=== PATIENT | female | born 1955 | race Caucasian/White ===

== ENCOUNTER → 2016-10-22 09:25 | Outpatient (CLI) | payer MEDICAID ==
[2015-01-01 19:52] VITALS: BMI 31.1
[~2016-10-22 09:25] MED LIST: ACTOS30 MG PO; BACLOFEN10 MG; DIFLUCAN200 MG PO; ELIQUIS2.5 MG PO; GLUCOPHAGE1000 MG PO; HYDROCODONE-APA1 TAB PO; LOPRESSOR25 MG PO; MOBIC7.5 MG PO; NAPROSYN500 MG PO; NEURONTIN 300300 MG PO; NORVASC5 MG PO; PERCOCET 10/3251 TA1 PO; PRILOSEC20 MG PO; PROZAC10 MG PO; ZESTORETIC 20/21 TAB PO
== END | disposition home or self-care (01) ==
LOC: D.NM 09:25
DX: M25.561 Pain in right knee (principal)

== ENCOUNTER → 2016-11-05 19:14 | Outpatient (CLI) | payer MEDICAID ==
[2015-01-01 19:52] VITALS: BMI 31.1
== END | disposition home or self-care (01) ==
LOC: D.LABREF 19:14
DX: M25.561 Pain in right knee (principal); Z11.8 Encounter for screening for other infectious and parasitic diseases

== ENCOUNTER 2016-11-27 09:30 | Inpatient (IN) | payer MEDICAID ==
[~2016-11-27] VITALS: Ht 170.2 cm; Wt 90.5 kg
[2016-11-27 09:20] LABS: BASOPHILS 0.4 % (0-2); EOSINOPHILS 1.9 % (0-7); HEMATOCRIT 38.4 % (36.0-48.0); HEMOGLOBIN 12.4 g/dL (12-16); IMMATURE GRANULOCYTES 0.2 % (0-5); LYMPHOCYTES 29.4 % (15-50); MCH 30.6 pg (26.0-34.0); MCHC 32.3 g/dL (31.0-37.0); MCV 94.8 fL (80.0-100.0); MEAN PLATELET VOLUME 11.9 fL (7.4-10.4); MONOCYTES 7.9 % (2-11); NEUTROPHILS 60.2 % (40-80); PLATELET COUNT 252 10x3/uL (130-400); RBC 4.05 10x6/uL (4.00-5.40); RDW 13.9 % (11.5-14.5); WBC 4.8 10x3/uL (4.8-10.8)
[2016-11-27 09:27] LABS: APTT 25.5 SECONDS (22.8-39.4); INR 0.93 (0.85-1.17); PROTIME 12.3 SECONDS (11.6-15.0)
[~2016-11-27 09:30] MED LIST changes: -ACTOS30 MG PO; +ACTOS45 MG PO; +AMBIEN5 MG PO; -BACLOFEN10 MG; +BACLOFEN10 MG PO; +CELEBREX200 MG PO; +CIMETIDINE200 MG PO; +FENOFIBRATE134 MG PO; +NORVASC10 MG PO; -NORVASC5 MG PO; +OMEPRAZOLE20 M1 PO
[2016-11-27 09:37] LABS: ANION GAP 11.1 mmol/L (8-16); CALCIUM 9.2 mg/dL (8.5-10.1); CARBON DIOXIDE 29.8 mmol/L (21.0-32.0); CREATININE - SERUM 1.4 mg/dL (0.6-1.3); POTASSIUM - SERUM 3.9 mmol/L (3.5-5.1)
[2016-11-27 09:45] LABS: APPEARANCE CLEAR (CLEAR); BACTERIA MODERATE /hpf (NONE SEEN); BILIRUBIN NEGATIVE (NEGATIVE); COLOR YELLOW (YELLOW); GLUCOSE NEGATIVE (NEGATIVE); KETONE NEGATIVE (NEGATIVE); LEUKOCYTE ESTERASE 1+ (NEGATIVE); MUCUS <1+ /lpf (NONE SEEN); NITRITE NEGATIVE (NEGATIVE); PROTEIN NEGATIVE (NEGATIVE); RED CELLS - URINE OCC /hpf (0-5); UROBILINOGEN NORMAL (NORMAL)
--- NOTE | 2016-11-27 11:57 | NUR ---
1100-DR DEMARCO INFORMED OF UA RESULTS. STATES NOTIFY MARIA DOLORES DUGGAN APN TO TREAT PATIENT. 1130-MARIA DOLORES DUGGAN APN IS WITH PATIENT. MESSAGE LEFT WITH ZACH.
--- NOTE | 2016-11-27 12:47 | NUR ---
EMRE NOTE: MESSAGE LEFT AT DR. DEMARCO'S OFFICE REGARDING ABNORMAL LAB.
[2016-12-01] VITALS (12 sets, daily range): BP systolic 100–165; BP diastolic 48–80; Ht 170.2 cm; Wt 90.5 kg
--- NOTE | 2016-12-01 09:38 | NUR ---
PT BEGAN HURTING REPORT WAS BEING CALLED TO FLOOR. MEDICATED FOR PAIN, NOW RESTING COMFORTABLY. FAMILY NOTIFIED OF ROOM NUMBER. TRANSFER TO ROOM.
--- NOTE | 2016-12-01 09:45 | NUR ---
PATIENT RECEIVED TO FLOOR FROM PACU VIA BED. RESPIRATIONS EVEN AND UNLABORED. VITAL SIGNS STABLE. FAMILY AT BEDSIDE. ORIENTED TO ROOM. DRESSING TO RIGHT KNEE CLEAN, DRY AND INTACT. ICE PACK IN PLACE. SIDE RAILS UP X3. BED IN LOW POSITION. CALL LIGHT IN REACH. BED ALARM ON.
--- NOTE | 2016-12-01 10:50 | NUR ---
ALERT IN BED WATCHING TV. NO SIGNS OF DISTRESS NOTED. VITAL SIGNS STABLE. SCDS ON BILATERALLY. DENIES NEEDS. SIDE RAILS UP X2. BED IN LOW POSITION. CALL LIGHT IN REACH.
--- NOTE | 2016-12-01 12:30 | NUR ---
PATIENT ALERT IN BED EATING LUNCH. TOLERATING WELL. DENIES NEEDS. SIDE RAILS UP X2. BED IN LOW POSITION. CALL LIGHT IN REACH.
--- NOTE | 2016-12-01 14:20 | NUR ---
PATIENT IN MID RIVERO POSITION RESTING WITH EYES CLOSED. RESPIRATIONS EVEN AND UNLABORED. WAKES EASY. SCHEDULED MEDICATION ADMINISTERED. SIDE RAILS UP X2. BED IN LOW POSITION. CALL LIGHT IN REACH.
--- NOTE | 2016-12-01 21:20 | NUR ---
PATIENT RESTING IN BED ON CPM MACHINE AND REQUESTED A PAIN PILL WHEN IT IS DUE. BED IN LOWEST POSITION AND CALL LIGHT WITHIN REACH. ENCOURAGED THE PATIENT TO CALL IF SHE HAS NEEDS.
[2016-12-02] VITALS: BP 146/56
[2016-12-02 04:00] VITALS: BP 130/57
[2016-12-02 05:38] LABS: HEMATOCRIT 34.3 % (36.0-48.0); HEMOGLOBIN 10.9 g/dL (12-16); MCH 30.4 pg (26.0-34.0); MCHC 31.8 g/dL (31.0-37.0); MCV 95.8 fL (80.0-100.0); MEAN PLATELET VOLUME 12.2 fL (7.4-10.4); RBC 3.58 10x6/uL (4.00-5.40); RDW 14.3 % (11.5-14.5); WBC 6.6 10x3/uL (4.8-10.8)
--- NOTE | 2016-12-02 07:25 | NUR ---
PATIENT RECEIVED IN LOW RIVERO POSITION ALERT AND RESTING QUIETLY. RESPIRATIONS EVEN AND UNLABORED. CPM TO RIGHT LEG. TOLERATING WELL. DENIES NEEDS. FAMILY PRESENT. SIDE RAILS UP X3. BED IN LOW POSITION. CALL LIGHT IN REACH.
--- NOTE | 2016-12-02 08:44 | NUR ---
PATIENT ALERT IN BED EATING BREAKFAST. TOLERATING WELL. SCHEDULED MEDICATION ADMINISTERED WELL PRN NORCO. SIDE RAILS UP X2. BED IN LOW POSITION. CALL LIGHT IN REACH.
[2016-12-02 09:30] VITALS: BP 140/59
--- NOTE | 2016-12-02 11:30 | NUR ---
PATIENT SITTING UP IN CHAIR AT BEDSIDE. NO SIGNS OF DISTRESS NOTED. CALL LIGHT IN REACH.
--- NOTE | 2016-12-02 12:40 | NUR ---
SITTING UP IN CHAIR ALERT. C/O PAIN 10/08. NORCO PER PRN ORDER. DENIES NEEDS. CALL LIGHT IN REACH.
[2016-12-02 13:54] VITALS: BP 119/56
--- NOTE | 2016-12-02 14:35 | NUR ---
ALERT IN BED VISITING WITH FAMILY. RESPIRATIONS EVEN AND UNLABORED. RATES PAIN 4/10. SIDE RAILS UP X2. BED IN LOW POSITION. CALL LIGHT IN REACH.
[2016-12-02 16:23] VITALS: BP 104/64
--- NOTE | 2016-12-02 16:44 | NUR ---
IV TO RIGHT FOREARM LEAKING. IV D/C WITH CATH TIP INTACT. SITE COVERED WITH GAUZE AND TAPE. NEW 22 GAUGE IV SITED TO LEFT FOREARM X1 ATTEMPT. FLUSHES EASY WITH BLOOD RETURN PRESENT. SECURED WITH TAPE AND TEGADERM. SIDE RAILS UP X2. BED IN LOW POSITION. CALL LIGHT IN REACH.
--- NOTE | 2016-12-02 19:57 | NUR ---
PATIENT RESTING IN BED AND DENIES NEEDS AT THIS TIME. BED IN LOWEST POSITION AND CALL LIGHT WITHIN REACH. ENCOURAGED THE PATIENT TO CALL IF SHE HAS NEEDS.
[2016-12-02 20:00] VITALS: BP 123/60
[2016-12-03] VITALS: BP 129/54
[2016-12-03 04:00] VITALS: BP 109/51
--- NOTE | 2016-12-03 05:22 | NUR ---
ADMINISTERED ZOFRAN FOR N/V. PATIENT REQUESTED THAT WE WAIT TO PUT HER ON THE CPM MACHINE.
[2016-12-03 06:34] LABS: HEMATOCRIT 34.3 % (36.0-48.0); HEMOGLOBIN 10.9 g/dL (12-16); MCH 30.5 pg (26.0-34.0); MCHC 31.8 g/dL (31.0-37.0); MCV 96.1 fL (80.0-100.0); MEAN PLATELET VOLUME 12.2 fL (7.4-10.4); RBC 3.57 10x6/uL (4.00-5.40); RDW 14.4 % (11.5-14.5); WBC 6.6 10x3/uL (4.8-10.8)
--- NOTE | 2016-12-03 07:10 | NUR ---
PATIENT RECEIVED IN LOW RIVERO POSITION RESTING WITH EYES CLOSED. RESPIRATIONS EVEN AND UNLABORED. CPM TO RIGHT LEG. SIDE RAILS UP X2. BED IN LOW POSITION. CALL LIGHT IN REACH.
[2016-12-03 08:06] VITALS: BP 150/66
--- NOTE | 2016-12-03 08:40 | NUR ---
PATIENT ALERT IN BED. NO SIGNS OF DISTRESS NOTED. SCHEDULED MEDICATION ADMINISTERED. DENIES NEEDS. SIDE RAILS UP X2. BED IN LOW POSITION. CALL LIGHT IN REACH.
--- NOTE | 2016-12-03 09:20 | NUR ---
C/O PAIN 10/08. 1 TAB NORCO PER PRN ORDER. NO FURTHER NEEDS VOICED. SIDE RAILS UP X2. BED IN LOW POSITION. CALL LIGHT IN REACH.
--- NOTE | 2016-12-03 11:15 | NUR ---
SITTING UP IN CHAIR AT BEDSIDE. NO SIGNS OF DISTRESS NOTED. DENIES NEEDS. CALL LIGHT IN REACH.
[2016-12-03 12:27] VITALS: BP 101/53
--- NOTE | 2016-12-03 13:38 | NUR ---
Patient Name: FELIZ SILVER Admission Status: Elective Accout number: [id number] Admission Date: 12-01-2016 : 1955 Admission Diagnosis:INFECT/INFLM REACTION DUE TO INTERNAL R KNEE PROSTH, IN Attending: ABDIEL Current LOS: 2 Anticipated DC Date: Planned Disposition: Home Primary Insurance: [employer] [facility] Discharge Planning Comments: CM met with patient and daughter (Jus) to assess discharge planning needs. Patient states that she lives independently with her Suhail. That is where she plans to return home to. Jus (daughter) will be the one driving her home. Patient stated the last time she had her knee replaced she did home PT then went to [facility]. She stated that she would like to go to [facility] when she is discharged and not have home health. Her Daughter is a teacher and is out for the summer so she will have transportation to go to OP PT. Patient denies any other needs at this time. She states that she has a walker and a glucometer at home. CM will continue to follow and assist as needed. Promotions Director: Annie MoorePatient Name: FELIZ SILVER Admission Status: Elective Accout number: [id number] Admission Date: 12-01-2016 : 1955 Admission Diagnosis:INFECT/INFLM REACTION DUE TO INTERNAL R KNEE PROSTH, IN Attending: ABDIEL Current LOS: 2 Anticipated DC Date: Planned Disposition: Home Primary Insurance: [employer] [facility] Discharge Planning Comments: Promotions Director: Annie Moore * Is the patient Alert and Oriented? Yes 0 * How many steps to enter\exit or inside your home? 2 0 * PCP YUAN 0 * Pharmacy [facility] 0 * Preadmission Environment Home with Family 0 * ADLs Independent 0 * Equipment Glucometer Walker 0 * List name and contact numbers for known caregivers / representatives who currently or will assist patient after discharge: SUHAIL () JUS (DAUGHTER) [phone] * Community resources currently utilized None 0 * Additional services required to return to the preadmission environment? Yes 0 * Can the patient safely return to the preadmission environment? Yes 0 * Has this patient been hospitalized within the prior 30 days at any hospital? No 0 Grand Total: 0
--- NOTE | 2016-12-03 13:40 | NUR ---
ALERT IN BED. C/O PAIN 12/08. 1 TAB NORCO PER PRN ORDER. DENIES FURTHER NEEDS. FAMILY PRESENT. SIDE RAILS UP X2. BED IN LOW POSITION. CALL LIGHTS IN REACH.
[2016-12-03 15:52] VITALS: BP 141/57
--- NOTE | 2016-12-03 17:39 | NUR ---
ALERT IN BED EATING DINNER. TOLERATING WELL. NORCO PER PRN ORDER. SIDE RAILS UP X2. BED IN LOW POSITION. CALL LIGHT IN REACH.
--- NOTE | 2016-12-03 19:31 | NUR ---
PATIENT RESTING IN BED ON THE CPM MACHINE AND DENIES NEEDS AT THIS TIME. BED IN LOWEST POSITION AND CALL LIGHT WITHIN REACH. ENCOURAGED THE PATIENT TO CALL IF SHE HAS NEEDS.
[2016-12-03 20:00] VITALS: BP 152/60
[2016-12-04] VITALS: BP 131/53
[2016-12-04 04:00] VITALS: BP 125/62
[2016-12-04] MEDS ORDERED: ELIQUIS2.5 MG PO (08:20)
[2016-12-04] MEDS ORDERED: HYDROCODONE-APA1 TAB PO (08:20)
[2016-12-04] MEDS ORDERED: DOXYCYCLINE HY100 M2 PO (08:21)
--- NOTE | 2016-12-04 08:21 | NUR ---
PT SEEN THIS AM. COMPLAINTS OF PAIN TO RIGHT KNEE-CURRENTLY IN CPM MACHINE. ALSO COMPLAINTS OF NAUSEA-MEDS GIVEN. RIGHT TOES WARM AND PINK-ABLE TO MOVE FREELY. CALL LIGHT IN REACH. BED ALARM ON FOR SAFETY. HAD LARGE BM THIS AM ON BSC.
[2016-12-04 08:26] VITALS: BP 170/76
--- NOTE | 2016-12-04 10:18 | NUR ---
CM set up OP PT with [facility]. Patients appointment is scheduled for December 05 at 2:00pm. Patient is aware and it is on DC instructions. Patient also instructed to call Erin at [facility] for CPM machine and Erin will deliver to house. Patient discharging today with Daughter to drive her home
== END 2016-12-04 13:50 | disposition home or self-care (01) | DRG 465 ==
LOC: D.SDCHOLD 09:30 → D.MS 12-01 05:15 → D.SDCHOLD 12-01 07:30 → D.MS 12-01 09:14 → D.SDCHOLD 12-01 09:30 → D.MS 12-04 13:50
PROVIDERS: ADMIT Orthopaedic Surgery
PROC: 0SPC0JC Removal of Synthetic Substitute from Right Knee Joint, Patellar Surface, Open Approach (ICD-10-PCS; principal; 2016-12-01 07:30)
DX: T84.53XA Infection and inflammatory reaction due to internal right knee prosthesis, initial encounter (principal); E11.9 Type 2 diabetes mellitus without complications; Z79.84 Long term (current) use of oral hypoglycemic drugs; I10 Essential (primary) hypertension; Z87.891 Personal history of nicotine dependence

== ENCOUNTER 2017-02-28 18:38 | Inpatient (IN) | payer MEDICAID ==
[~2017-02-28 18:38] MED LIST changes: +DOXYCYCLINE HY100 M2 PO
[2017-02-28 19:21] LABS: COLOR YELLOW (YELLOW)
[2017-02-28 19:22] LABS: APPEARANCE SLT CLOUDY (CLEAR); BILIRUBIN NEGATIVE (NEGATIVE); GLUCOSE NEGATIVE (NEGATIVE); KETONE NEGATIVE (NEGATIVE); NITRITE NEGATIVE (NEGATIVE); PROTEIN NEGATIVE (NEGATIVE); SPECIFIC GRAVITY 1.025 (1.005-1.020); UROBILINOGEN NORMAL (NORMAL)
[2017-02-28 19:28] LABS: EPITHELIAL CELLS 0-5 /hpf (0-5)
[2017-02-28 19:29] LABS: BACTERIA FEW /hpf (NONE SEEN)
[2017-02-28 19:31] LABS: BASOPHILS 0.1 % (0-2); EOSINOPHILS 1.2 % (0-7); HEMATOCRIT 37.9 % (36.0-48.0); HEMOGLOBIN 12.4 g/dL (12-16); IMMATURE GRANULOCYTES 0.1 % (0-5); LYMPHOCYTES 28.7 % (15-50); MCH 30.8 pg (26.0-34.0); MCHC 32.7 g/dL (31.0-37.0); MCV 94.3 fL (80.0-100.0); MEAN PLATELET VOLUME 12.1 fL (7.4-10.4); MONOCYTES 9.7 % (2-11); NEUTROPHILS 60.2 % (40-80); PLATELET COUNT 271 10x3/uL (130-400); RBC 4.02 10x6/uL (4.00-5.40); RDW 13.7 % (11.5-14.5); WBC 6.9 10x3/uL (4.8-10.8)
[2017-02-28 19:44] LABS: ALBUMIN 3.9 g/dL (3.4-5.0); ALKALINE PHOSPHATASE 71 U/L (46-116); ALT (SGPT) 20 U/L (10-68); BILIRUBIN - TOTAL 0.46 mg/dL (0.2-1.3); CALC OSMOLALITY 289 mosm/kg (275-300); CHLORIDE - SERUM 105 mmol/L (98-107); CREATININE - SERUM 1.8 mg/dL (0.6-1.3); PROTEIN - SERUM 7.2 g/dL (6.4-8.2); SODIUM 140 mmol/L (136-145); UREA NITROGEN 40 mg/dL (7-18); eGFR NON AFRICAN AMERICAN 30 mL/min (90-120)
[2017-02-28 19:54] LABS: GLUCOSE 109 mg/dL (74-106)
[2017-02-28 19:57] LABS: CKMB 0.6 U/L (0.0-3.6); CREATINE KINASE 108 UL (21-215); THYROID STIMULATING HORMONE 1.31 uIU/mL (0.36-3.74); TROPONIN-I < 0.017 ng/mL (0.000-0.060)
[2017-02-28] MEDS ORDERED: CELEBREX200 MG PO (21:25)
[2017-02-28] MEDS ORDERED: NAPROSYN500 MG PO (21:28)
--- NOTE | 2017-02-28 22:20 | NUR ---
PATIENT RECEIVED FROM ER VIA WHEELCHAIR. 20G PIV TO RFA INFUSING NS@150. QUICK START AND HISTORY COMPLETED. PATIENT RESTING COMFORTABLY.
[2017-02-28 22:42] VITALS: BP 158/82; BMI 33.9
--- NOTE | 2017-02-28 22:46 | NUR ---
RN NOTE: ADMISSION ASSESSMENT COMPLETE. PT RESTING QUIETLY WATCHING TV. WARM BLANKET APPLIED TO LOWER EXTREMETIES PT C/O FEET BEING COLD. WILL MONITOR FOR NEEDS.
[2017-03-01 00:01] VITALS: BP 118/46
[2017-03-01 02:32] LABS: BASOPHILS 0.2 % (0-2); EOSINOPHILS 1.2 % (0-7); HEMATOCRIT 36.2 % (36.0-48.0); HEMOGLOBIN 11.7 g/dL (12-16); IMMATURE GRANULOCYTES 0.2 % (0-5); LYMPHOCYTES 35.3 % (15-50); MCH 30.3 pg (26.0-34.0); MCHC 32.3 g/dL (31.0-37.0); MCV 93.8 fL (80.0-100.0); MONOCYTES 8.8 % (2-11); NEUTROPHILS 54.3 % (40-80); PLATELET COUNT 236 10x3/uL (130-400); RBC 3.86 10x6/uL (4.00-5.40); RDW 13.8 % (11.5-14.5)
[2017-03-01 03:04] LABS: CALC OSMOLALITY 292 mosm/kg (275-300); CALCIUM 8.5 mg/dL (8.5-10.1); CARBON DIOXIDE 26.5 mmol/L (21.0-32.0); CHLORIDE - SERUM 106 mmol/L (98-107); CKMB 0.6 U/L (0.0-3.6); CREATINE KINASE 95 UL (21-215); CREATININE - SERUM 1.5 mg/dL (0.6-1.3); GLUCOSE 124 mg/dL (74-106); POTASSIUM - SERUM 3.6 mmol/L (3.5-5.1); SODIUM 142 mmol/L (136-145); TROPONIN-I < 0.017 ng/mL (0.000-0.060); UREA NITROGEN 37 mg/dL (7-18); eGFR NON AFRICAN AMERICAN 37 mL/min (90-120)
[2017-03-01 04:13] VITALS: BP 143/66
--- NOTE | 2017-03-01 07:20 | NUR ---
PATIENT RECEIVED IN LEFT LATERAL POSITION RESTING WITH EYES CLOSED. RESPIRATIONS EVEN AND UNLABORED. SIDE RAILS UP X2. BED IN LOW POSITION. CALL LIGHT IN REACH.
--- NOTE | 2017-03-01 08:30 | NUR ---
PATIENT ALERT IN BED. NO SIGNS OF DISTRESS NOTED. SCHEDULED MEDICATION ADMINISTERED. SCD ON BILATERALLY. SIDE RAILS UP X2. BED IN LOW POSITION. CALL LIGHT IN REACH.
[2017-03-01 09:15] LABS: CKMB 0.5 U/L (0.0-3.6); CREATINE KINASE 89 UL (21-215)
[2017-03-01 09:16] LABS: TROPONIN-I < 0.017 ng/mL (0.000-0.060)
--- NOTE | 2017-03-01 11:35 | NUR ---
PATIENT ALERT IN BED VISITING WITH GUESTS. NO SIGNS OF DISTRESS NOTED. DENIES NEEDS. SIDE RAILS UP X2. BED IN LOW POSITION. CALL LIGHT IN REACH.
[2017-03-01 12:17] VITALS: BP 130/50
--- NOTE | 2017-03-01 14:15 | NUR ---
ALERT IN BED WATCHING TV. NO SIGNS OF DISTRESS NOTED. SCHEDULED MEDICATION ADMINISTERED. PROVIDED WIT ICE PER REQUEST. DENIES NEEDS. SIDE RAILS UP X2. BED IN LOW POSITION. CALL LIGHT IN REACH.
--- NOTE | 2017-03-01 16:15 | NUR ---
ALERT IN BED WITH PRESENT. NO SIGNS OF DISTRESS NOTED. C/O PAIN 11/08. 1 TAB NORCO GIVEN PER PRN ORDER. DENIES FURTHER NEEDS. SIDE RAILS UP X2. BED IN LOW POSITION. CALL LIGHT IN REACH.
[2017-03-01 20:00] VITALS: BP 147/60
[2017-03-02] VITALS: BP 152/57
--- NOTE | 2017-03-02 02:56 | NUR ---
RN NOTE: PT RESTING QUIETLY IN SUPINE POSITION WITH EYES CLOSED AND EASY RESPIRATIONS. IV IN RIGHT FA PATENT WITH NS W/ 20 KCL INFUSING AT 125 ML / HR. WILL CONTINUE TO MONITOR FOR NEEDS. CALL LIGHT WITHIN REACH.
[2017-03-02 05:01] VITALS: BP 136/67
[2017-03-02 05:44] LABS: BASOPHILS 0.2 % (0-2); EOSINOPHILS 1.9 % (0-7); HEMATOCRIT 37.5 % (36.0-48.0); HEMOGLOBIN 12.1 g/dL (12-16); IMMATURE GRANULOCYTES 0.2 % (0-5); LYMPHOCYTES 31.8 % (15-50); MCH 30.3 pg (26.0-34.0); MCHC 32.3 g/dL (31.0-37.0); MEAN PLATELET VOLUME 12.2 fL (7.4-10.4); MONOCYTES 8.9 % (2-11); PLATELET COUNT 244 10x3/uL (130-400); RBC 3.99 10x6/uL (4.00-5.40); WBC 5.3 10x3/uL (4.8-10.8)
[2017-03-02 05:53] LABS: ANION GAP 10.4 mmol/L (8-16); CALCIUM 9.4 mg/dL (8.5-10.1); CARBON DIOXIDE 25.8 mmol/L (21.0-32.0)
[2017-03-02 05:54] LABS: POTASSIUM - SERUM 4.2 mmol/L (3.5-5.1)
--- NOTE | 2017-03-02 07:35 | NUR ---
A&O, DENIES NEEDS, NO DISTRESS NOTED, SITTING UP ON BEDSIDE, CALL LIGHT IN REACH, BED LOWEST POSITION, WILL CONTINUE TO MONITOR
[2017-03-02 08:48] VITALS: BP 156/68
--- NOTE | 2017-03-02 12:10 | NUR ---
RESTING QUIETLY IN BED AT THIS TIME. AT BEDSIDE. DENIES DIZZINESS AT THIS TIME. SCD'S IN PLACE.
[2017-03-02 12:36] VITALS: BP 146/65
[2017-03-02] MEDS ORDERED: MACROBID100 MG PO (13:31)
--- NOTE | 2017-03-02 14:38 | NUR ---
DISCHARGE PAPERS AND INSTRUCTIONS GIVEN TO PT AND , QUESTIONS ANSWERED, IV REMOVED TIP INATCT, DISCHARGED PER WC WITH BELONGINGS
--- NOTE | 2017-03-12 12:47 | EC ---
PATIENT:FELIZ SILVER DATE OF SERVICE: 03/01/17 SEX: F MEDICAL RECORD: [id number] DATE OF : [birth year] LOCATION:D[facility] AGE OF PATIENT: 62 ADMISSION DATE: 03/01/17 REFERRING PHYSICIAN: INTERPRETING PHYSICIAN: TOBIN TYSON MD ECHOCARDIOGRAM REPORT ECHO CHARGES 4 ECHO COMPLETE CLINICAL DIAGNOSIS: TIA HX OF HTN ECHOCARDIOGRAPHIC MEASUREMENTS (adult normal given) AC root (d.<3.7cm) 3.3 cm LV Septum d (<1.2 cm> 1.4 cm Valve Excursion 1.8 cm LV Septum (systole) 1.7 cm Left Atria (s.<4.0cm> 4.1 cm LVPW d(<1.2cm) 1.6 cm RV (d.<2.3cm) 4.0 cm LVPW (sytole) 1.8 cm LV diastole(<5.6CM) 4.6 cm MV E-F(>70mm/sec) cm LV systole 2.9 cm LVOT Diameter 1.8 cm MV exc.(>10mm) 1.3 cm Est.ejection fraction (50-75%) % Pericardial Effusion N DOPPLER: LVIT cm/sec A 100 cm/sec E 115 cm/sec LA cm/sec RVSP 21 mmHg LVOT 114 cm/sec AOP1/2T m/s Asc. Ao 159 cm/sec RVOT 112 cm/sec RA cm/sec PA 163 cm/sec AV Gradient Peak 10.06mmHg AV Mean 5.26 mmHg AV Area 1.5 cm MV Gradient Peak 6.19 mmHg MV Mean 1.93 mmHg MV Area cm COMMENTS: Element Setter: 2 BERTHA WHITE Transitional Care Manager: 4 Dr. Tyson TAPE# PACS DATE OF SERVICE: 03/01/2017 PROCEDURE: Transthoracic echocardiogram FINDINGS: 1. Left ventricle is normal size, normal function without evidence of regional wall motion abnormalities with inflow characteristics that are normal. The overall ejection fraction is 60%. 2. The mitral valve appears to be structurally normal with evidence of trace to mild mitral regurgitation. ECHOCARDIOGRAM REPORT [id number] FELIZ SILVER 3. The aortic valve is seen fairly well on planimetry, appears to be structurally normal with mild thickening with no evidence of stenosis or regurgitation. 4. The pulmonic valve is not well visualized, but upon Doppler evaluation, appears to be normal. 5. The tricuspid valve shows trace tricuspid regurgitation and normal right ventricular systolic pressures. 6. The pericardium is normal. 7. The right atrium appears to be moderately dilated. 9. The left atrium appears to be mildly dilated. 10. The interatrial septum is grossly normal. 11. The right ventricle appears to be mildly to moderately dilated with normal function. In conclusion, the patient appears to have mild hypertensive heart disease with otherwise fairly normal structure and function. TRANSINT:[id number] Voice Confirmation ID: [id number] DOCUMENT ID: [id number] 03/10/2017 Edited to correct date of service, dm. TOBIN TYSON MD at 1247 CC: [id number] DICTATION DATE: 03/02/17 0654 CARVER HAND: 03/02/17 1032 DIS IN 03/02/17 [facility] [address] [place] [address]
== END 2017-03-02 14:39 | disposition home or self-care (01) | DRG 310 ==
LOC: D.ER 18:38 → OBSVTIME 20:22 → D.MS 20:22
PROVIDERS: Family Medicine; ADMIT Family Medicine
DX: R00.1 Bradycardia, unspecified (principal); E86.0 Dehydration; E11.9 Type 2 diabetes mellitus without complications; I10 Essential (primary) hypertension; M19.90 Unspecified osteoarthritis, unspecified site

== ENCOUNTER → 2017-05-11 14:05 | Outpatient (CLI) | payer MEDICAID ==
[~2017-05-11 14:05] MED LIST changes: +MACROBID100 MG PO
== END | disposition home or self-care (01) ==
LOC: D.MAMMO 05-05 15:00
DX: Z12.31 Encounter for screening mammogram for malignant neoplasm of breast (principal)

== ENCOUNTER 2018-05-18 08:00 | Outpatient (CLI) | payer MEDICAID | END 2018-05-18 09:00 | disposition home or self-care (01) | LOC: D.MAMMO 08:00 | DX: Z12.31 Encounter for screening mammogram for malignant neoplasm of breast (principal) ==

== ENCOUNTER → 2019-04-19 18:20 | Outpatient (CLI) | payer MEDICARE | END | disposition home or self-care (01) | LOC: D.LABREF 18:20 | PROVIDERS: ATTEND Orthopaedic Surgery | DX: M25.561 Pain in right knee (principal) ==

== ENCOUNTER 2019-04-20 09:57 | Inpatient (IN) | payer MEDICARE ==
[~2019-04-20] VITALS: Ht 170.2 cm; Wt 104.3 kg
[2019-05-23] MEDS ORDERED: PIOGLITAZONE15 MG PO (11:41)
[2019-05-23 12:06] LABS: APPEARANCE HAZY (CLEAR); COLOR DK YELLOW (YELLOW); NITRITE NEGATIVE (NEGATIVE); PROTEIN NEGATIVE (NEGATIVE); SPECIFIC GRAVITY 1.025 (1.005-1.020)
[2019-05-23 12:07] LABS: BACTERIA MODERATE /hpf (NEGATIVE); BILIRUBIN NEGATIVE (NEGATIVE); GLUCOSE 100 mg/dL (NEGATIVE); KETONE NEGATIVE (NEGATIVE); MUCUS <1+ /lpf (NONE SEEN); RED CELLS - URINE NONE SEEN /hpf (0-5); UROBILINOGEN NORMAL (NORMAL); WHITE CELLS - URINE OCC /hpf (NEGATIVE)
[2019-05-30] VITALS (10 sets, daily range): BP systolic 115–163; BP diastolic 51–81; BMI 36.1
[2019-05-30] MEDS ORDERED: ASPIRIN EC81 M1 PO (06:38)
[2019-05-30] MEDS ORDERED: FERRAPLUS 90 T1 EACH PO (06:38)
[2019-05-30 07:30] LABS: BASOPHILS 0.5 % (0-2); HEMATOCRIT 37.5 % (36.0-48.0); HEMOGLOBIN 12.1 g/dL (12-16); IMMATURE GRANULOCYTES 0.2 % (0-5); LYMPHOCYTES 39.6 % (15-50); MCH 30.7 pg (26.0-34.0); MCHC 32.3 g/dL (31.0-37.0); MCV 95.2 fL (80.0-100.0); MEAN PLATELET VOLUME 11.5 fL (7.4-10.4); MONOCYTES 8.1 % (2-11); NEUTROPHILS 49.6 % (40-80); PLATELET COUNT 275 10x3/uL (130-400); RBC 3.94 10x6/uL (4.00-5.40); RDW 14.2 % (11.5-14.5); WBC 4.1 10x3/uL (4.8-10.8)
[2019-05-30 07:55] LABS: APTT 30.3 SECONDS (22.8-39.4); INR 0.97 (0.85-1.17); PROTIME 12.4 SECONDS (11.6-15.0)
[2019-05-30 07:56] LABS: ANION GAP 14.3 mmol/L (8-16); CARBON DIOXIDE 26.9 mmol/L (21.0-32.0); CREATININE - SERUM 1.3 mg/dL (0.6-1.3); POTASSIUM - SERUM 4.2 mmol/L (3.5-5.1)
--- NOTE | 2019-05-30 11:50 | NUR ---
1141 RECEIVED PATIENT RESTING COMPORTABLE, RESPIRATIIONS DEEP AND EVEN. OPA INPLACE
--- NOTE | 2019-05-30 12:49 | NUR ---
PT RECEIVED FROM RECOVERY VIA BED TO ROOM 2222. PT AWAKE ALERT AND ORIENTED X 4. O2 @ 3L NC IN PLACE. IV TO LEFT HAND WITH NS @ KVO INFUSING. SITE WITHOUT REDNESS OR EDEMA. PT REPORTS PAIN 5/10 AT THIS TIME. DRESSING C/D/I TO RIGHT LOWER EXTREMITY WITH IMMOBILIZER IN PLACE. ORIENTED TO ROOM, BED CONTROLS AND CL. CL WITHIN REACH. ENCOURAGED TO CALL WITH NEEDS.
--- NOTE | 2019-05-30 19:35 | NUR ---
PT SITTING UP IN BED WITHOUT DISTRESS, AOX4. IV LEFT HAND INFUSING 1/2NS @ 100, O2 2L/NC. SCD TO LEFT LEG. RIGHT LEG WITH AGATA WRAP IN IMMOBILIZER. SLIGHT BLOODY DRAINAGE TO UNDERSIDE OF LEG. VOIDED WITHOUT DIFFICULTY ON BED ANDREA. DENIES OTHER NEEDS. CL IN REACH, WILL CTM
[2019-05-31 00:22] VITALS: BP 124/47
[2019-05-31 04:45] VITALS: BP 151/58
[2019-05-31 05:30] LABS: HEMATOCRIT 32.5 % (36.0-48.0); HEMOGLOBIN 10.1 g/dL (12-16); MCH 30.1 pg (26.0-34.0); MCHC 31.1 g/dL (31.0-37.0); RBC 3.35 10x6/uL (4.00-5.40); RDW 14.6 % (11.5-14.5)
[2019-05-31 05:40] LABS: ANION GAP 11.3 mmol/L (8-16); CARBON DIOXIDE 26.5 mmol/L (21.0-32.0); CREATININE - SERUM 1.4 mg/dL (0.6-1.3); POTASSIUM - SERUM 3.8 mmol/L (3.5-5.1)
--- NOTE | 2019-05-31 06:50 | NUR ---
ALERT AND ORIENTED, RESTING IN BED. NO C/O PAIN. NO S/S OF ACUTE DISTRESS NOTED. SCD TO LEFT LEG. POD #1 RIGHT KNEE REVISION, AGATA WRAP AND IMMOBILIZER ON. ON 2L O2, NC. IV TO LEFT HAND, 1/2 NS INFUSING @ 100ML/HR. SITE PATENT WITHOUT REDNESS OR SWELLING. DENIES ANY NEEDS AT THIS TIME. CALL LIGHT IN REACH. WILL CONTINUE TO MONITOR.
[2019-05-31 06:52] LABS: WBC 6.8 10x3/uL (4.8-10.8)
[2019-05-31 08:43] VITALS: BP 138/52
[2019-05-31 12:43] VITALS: BP 123/64
[2019-05-31 13:52] VITALS: Ht 170.2 cm; Wt 104.3 kg
--- NOTE | 2019-05-31 15:58 | NUR ---
I have reviewed this patient and I concur with the Shift Assessment completed by the Licensed Practical Nurse today this shift.
[2019-05-31 16:54] VITALS: BP 134/54
--- NOTE | 2019-05-31 18:43 | NUR ---
ALERT AND ORIENTED, RESTING IN BED. DENIES ANY NEEDS AT THIS TIME. CALL LIGHT IN REACH. WILL CONTINUE TO MONITOR.
--- NOTE | 2019-05-31 19:00 | NUR ---
PT UP AT BEDSIDE COMMODE AND TRANSFERRED BACK WITH SOME PAIN. NO ACUTE S/S OF PAIN. NO C/O OTHER THAN PAIN, CANNOT GIVE ANOTHER NORCO-10 UNTIL 2116. PATIENT IS POST-OP DAY 1 FOR A REVISION ON A TOTAL KNEE REPLACEMENT. SOME BLEEDING ON AGATA WRAP, WILL CONTINUE TO MONITOR. PT HAS L HAND IV 1/2 NS @ 100 ML/HR. IV IS PATENT WITHOUT REDNESS, SWELLING, OR TENDERNESS. CALL LIGHT IN PLACE. WILL CONTINUE TO MONITOR.
[2019-05-31 19:30] VITALS: BP 143/48
[2019-06-01 00:30] VITALS: BP 140/50
--- NOTE | 2019-06-01 03:36 | NUR ---
I have reviewed this patient and I concur with the Shift Assessment completed by the Licensed Practical Nurse today this shift.
[2019-06-01 05:30] VITALS: BP 148/57
[2019-06-01 06:24] LABS: HEMATOCRIT 32.2 % (36.0-48.0); MCH 29.9 pg (26.0-34.0); MCHC 31.1 g/dL (31.0-37.0); MCV 96.1 fL (80.0-100.0); MEAN PLATELET VOLUME 11.8 fL (7.4-10.4); RBC 3.35 10x6/uL (4.00-5.40); RDW 14.7 % (11.5-14.5); WBC 5.9 10x3/uL (4.8-10.8)
[2019-06-01 08:08] VITALS: BP 151/58
[2019-06-01 12:18] VITALS: BP 182/73
[2019-06-01 17:03] VITALS: BP 172/68
--- NOTE | 2019-06-01 17:54 | NUR ---
I have reviewed this patient and I concur with the Shift Assessment completed by the Licensed Practical Nurse today this shift.
[2019-06-01 20:00] VITALS: BP 157/64
--- NOTE | 2019-06-01 21:30 | NUR ---
PATIENT IS IN BED WITH EYES OPEN. NO ACUTE S/S OF DISTRESS. NO C/O AT THIS TIME. PATIENT IS IS POSTOP DAY 2 OF A TOTAL KNEE REVISION. PATIENT IS IN IMBOLIZER. PATIENT IS UP WITH PT, PATIENT IS USING BEDPAN. PATIENT IV IS IN L HAND 1/2 NORMAL SALINE @ 100 ML/HR. IV IS PATENT WITHOUT REDNESS, SWELLING, OR TENDERNESS. CALL LIGHT IN PLACE, WILL CONTINUE TO MONITOR.
[2019-06-02] VITALS: BP 168/66
--- NOTE | 2019-06-02 03:27 | NUR ---
I have reviewed this patient and I concur with the Shift Assessment completed by the Licensed Practical Nurse today this shift.
[2019-06-02 04:00] VITALS: BP 150/64
[2019-06-02] MEDS ORDERED: ELIQUIS2.5 MG PO (07:42)
--- NOTE | 2019-06-02 07:42 | NUR ---
LYING IN BED,WITHOUT DISTRESS.CALL LIGHT IN REACH
[2019-06-02] MEDS ORDERED: HYDROCODON-ACE1 EA10 PO (07:44)
[2019-06-02 09:01] VITALS: BP 157/71
--- NOTE | 2019-06-02 09:31 | OP ---
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 PROCEDURE: Revision total knee arthroplasty. SURGEON: Silvio Demarco MD MEDIA TECHNICIAN: Tremayne Barnes. INTRAOPERATIVE COMPLICATIONS: None. SUMMARY OF PATHOLOGIC FINDINGS: Essentially only inflammatory synovitis was found. The knee was still well fixed. There was no evidence of loosening. No evidence of infection. This is in keeping with the patient's preoperative studies that showed no signs of infection upon serologic testing as well as her allergies as seen to metal on her allergy testing. Implants chosen were the Aesculap revision system using these type cases with metal sensitivity. Please see the operative chart for details of the combined parts utilized. OPERATIVE SUMMARY IN DETAIL: After obtaining the appropriate preoperative orthopedic surgery consent as well as anesthetic consultation, evaluation and clearance, the patient was brought to the operating room and placed on the operating table in supine position. After adequate general laryngeal mask airway was administered, tourniquet was placed about the proximal aspect of the right lower extremity. Right lower extremity was then prepped and draped in routine sterile fashion. Leg was elevated, exsanguinated, and tourniquet was inflated to 350 mmHg. At this point, the appropriate timeout was taken and agreed upon by all. The incision was made through the previous incision, taken down for paramedian arthrotomy. The previously utilized Ethibonds were incised. The knee was subluxed laterally and the femur was exposed. Polyethylene was removed. This was followed by serial and sequential removal of the distal femur with very little bone loss, although again it was very well fixed. Attention was then turned to the proximal tibia. A combination of a small saw as well as osteotome was utilized to loosen the proximal tibia, it was likewise removed with very little bone loss. At this point, serial and sequential reaming of the tibia were done ultimately for a size 14 stem. This was then put into place and the appropriate preparations for the tibia were then followed by preparing the femur. Again, serial and sequential reaming were done for a size 16, long stem. Trials were put into place, taken through a full range of motion. Trials corresponding the final implants were chosen, that was a size 16 spacer with a size 2 tibia and a size 3 femur with the appropriate stems. These were then removed in their entirety and the patella was again revised and resurfaced with a size 2 patellar component using the Aesculap system. After all trials had been removed, again copious irrigation was followed by drying of the bony ends. The Aesculap system components were assembled on the back table and then they were cemented in place with a press fit on the stems and cement on the bony interfaces. All excess cement was removed after the cement was allowed to harden, the knee was taken through range of motion and found to be stable in all planes. The knee was filled with a gram of vancomycin, a gram of tobramycin. OPERATIVE REPORT [id number] FELIZ SILVER Paramedian arthrotomy was then closed by Tremayne barnes, using #2 Ethibond. Prior to closure of the paramedian arthrotomy, a single Arthrex suture anchor was placed in the tibial tubercle to reinforce the patellar tendon attachment. It had not become completely attached, but partially avulsed. Therefore, it was reattached with a double suture PushLock from Arthrex. This resulted in excellent reapproximation of the patellar tendon and then the paramedian arthrotomy was closed by Tremayne Barnes followed by #1 Vicryl, 2-0 Vicryl and skin radhika. Sterile dressings were applied. The patient was awakened and taken to the recovery room in stable condition. All final needle and sponge counts were correct. TRANSINT:[id number] Voice Confirmation ID: [id number] DOCUMENT ID: [id number] NILAM CEDENO, SILVIO ORDONEZ at 0931 CC: [id number] DICTATION DATE: 05/31/19 1025 MOTION AND TIME STUDY TEACHER: 05/31/19 1352 [facility] [place] [address] [place] [address]
--- NOTE | 2019-06-02 10:03 | NUR ---
PT TO DC HOME TODAY, ASSISTED PT WITH CHANGE OF CLOTHES AND DRESSING CHANGE. NO OTHER NEEDS VOICED, CONTINUE WITH PLAN OF CARE
--- NOTE | 2019-06-02 11:21 | MORECARE ---
CASE MANAGEMENT DISCHARGE SUMMARY PATIENT: FELIZ SILVER UNIT: [id number] ADM DATE: 05/30/19 AGE: 64 : [birth year] SEX: F ROOM/BED: D.2222 AUTHOR: LISA,DOC PHYSICIAN: REFERRING PHYSICIAN: SILVIO DEMARCO MD DATE OF SERVICE: 06/02/19 Discharge Plan Patient Name: FELIZ SILVER Facility: [facility]:[place] : 1955 Planned Disposition: Home Anticipated Discharge Date: 06/02/19 Discharge Date: Expected LOS: 3 Initial Reviewer: [email or web address] Initial Review Date: 06/02/2019 Generated: 06/02/19 12:20 pm Comments DCP- Discharge Planning Updated by [email or web address]: Krystal Dominguez on 06/02/19 10:[address] Patient Name: FELIZ SILVER Admission Status: Elective Accout number: [id number] Admission Date: 05-30-2019 : 1955 Admission Diagnosis: Attending: SILVIO DEMARCO Current LOS: 3 Anticipated DC Date: 06-02-2019 Planned Disposition: Home Primary Insurance: MEDICARE A & B Discharge Planning Comments: CM met with patient to complete initial dc planning assessment. CM educated patient on the CM role and verbal consent given by patient to complete assessment. Patient lives at home with her spouse. At discharge patient plans to return and feels this is a safe discharge. CM discussed availability of home health, rehab services, and medical equipment. Patient states she would like OP PT at [facility] on [address]. I have called and set the first appointment for Thursday at 9am and clinical and order faxed. CM will continue to follow and will assist as needed with dc plans/needs. Crochet Beader: Krystal Dominguez DCPIA - Discharge Planning Initial Assessment Updated by [email or web address]: Krystal Dominguez on 06/02/19 11:18 am * Is the patient Alert and Oriented? Yes * How many steps to enter\exit or inside your home? 0/0 * PCP Dr. Kaba * Pharmacy [facility] [address] * Preadmission Environment Home with Family * ADLs Independent * Equipment Bedside Commode Other Walker * Other Equipment Hinged knee brace * List name and contact numbers for known caregivers / representatives who currently or will assist patient after discharge: Suhail garza - [phone] * Verbal permission to speak to the caregivers and representatives has been obtained from the patient. Yes * Community resources currently utilized None * Additional services required to return to the preadmission environment? Yes * Can the patient safely return to the preadmission environment? Yes * Has this patient been hospitalized within the prior 30 days at any hospital? No External Providers External Provider: [facility] Next Contact Date: Service Request Date: Service Type: Resolution: Reviewer: Comments: Coverage Notice Reviewer: [email or web address] Joanna Dominguez Notice Issued Date-Time: 06/02/2019 9:07 Notice Type: IM Discharge Notice Notice Delivered To: Patient Relationship to Patient: Self Recycling Specialist Name: Delivery Method: HAND - Hand Delivered Laurie Days: Prior Verbal Notification: Recipient Understood Notice: Yes Recipient Signature: Yes Med Rec Note Co-signed by Attending: Coverage Notice Comment: IMM explained, signed, given, copy placed in Mr Patient Name: FELIZ SILVER Page [id number] at 1121 All edits/amendments must be made on the electronic document DICTATION DATE: 06/02/191119 CYTOLOGY SUPERVISOR: EMELYN 06/02/191119 RPT#: [id number] DC DATE: STATUS: ADM IN [facility] [address] [place] [address] END OF REPORT
--- NOTE | 2019-06-02 12:05 | NUR ---
PT TAKEN DOWN VIA WC BY VOLUNTEER. NO NEEDS VOICED, ALL QUESTIONS ANSWERED, PT IV DC WITH CATHERTER INTACT.
--- NOTE | 2019-06-03 14:26 | MORECARE ---
CASE MANAGEMENT DISCHARGE SUMMARY PATIENT: FELIZ SILVER UNIT: [id number] ADM DATE: 05/30/19 AGE: 64 : 53 SEX: F ROOM/BED: D.2222 AUTHOR: LISA,DOC PHYSICIAN: REFERRING PHYSICIAN: SILVIO DEMARCO MD DATE OF SERVICE: 06/03/19 Discharge Plan Patient Name: FELIZ SILVER Facility: [facility]:[place] : 1955 Planned Disposition: Home Anticipated Discharge Date: 06/02/19 Discharge Date: 06/02/2019 Expected LOS: 3 Initial Reviewer: [email or web address] Initial Review Date: 06/02/2019 Generated: 06/03/19 3:26 pm Comments DCP- Discharge Planning Updated by [email or web address]: Krystal Dominguez on 06/02/19 10:[address] Patient Name: FELIZ SILVER Admission Status: Elective Accout number: [id number] Admission Date: 05-30-2019 : 1955 Admission Diagnosis: Attending: SILVIO DEMARCO Current LOS: 3 Anticipated DC Date: 06-02-2019 Planned Disposition: Home Primary Insurance: MEDICARE A & B Discharge Planning Comments: CM met with patient to complete initial dc planning assessment. CM educated patient on the CM role and verbal consent given by patient to complete assessment. Patient lives at home with her spouse. At discharge patient plans to return and feels this is a safe discharge. CM discussed availability of home health, rehab services, and medical equipment. Patient states she would like OP PT at [facility] [address]. I have called and set the first appointment for Thursday at 9am and clinical and order faxed. CM will continue to follow and will assist as needed with dc plans/needs. Sociology Faculty Member: Krystal Dominguez DCPIA - Discharge Planning Initial Assessment Updated by [email or web address]: Krystal Dominguez on 06/02/19 11:18 am * Is the patient Alert and Oriented? Yes * How many steps to enter\exit or inside your home? 0/0 * PCP Dr. Kaba * [facility] [address] * Preadmission Environment Home with Family * ADLs Independent * Equipment Bedside Commode Other Walker * Other Equipment Hinged knee brace * List name and contact numbers for known caregivers / representatives who currently or will assist patient after discharge: Suhail garza - [phone] * Verbal permission to speak to the caregivers and representatives has been obtained from the patient. Yes * Community resources currently utilized None * Additional services required to return to the preadmission environment? Yes * Can the patient safely return to the preadmission environment? Yes * Has this patient been hospitalized within the prior 30 days at any hospital? No Coverage Notice Reviewer: [id number] Joanna Dominguez Notice Issued Date-Time: 06/02/2019 9:07 Notice Type: IM Discharge Notice Notice Delivered To: Patient Relationship to Patient: Self Fire Information Officer Name: Delivery Method: HAND - Hand Delivered Laurie Days: Prior Verbal Notification: Recipient Understood Notice: Yes Recipient Signature: Yes Med Rec Note Co-signed by Attending: Coverage Notice Comment: IMM explained, signed, given, copy placed in Mr Last DP export: 06/02/19 10:21 am Patient Name: FELIZ SILVER Page [id number] at 1426 All edits/amendments must be made on the electronic document DICTATION DATE: 06/03/19 1426 POOL TECHNICIAN: EMELYN 06/03/19 1426 RPT#: [id number] DC DATE:06/02/19 STATUS: DIS IN [facility] [address] [place] [address] END OF REPORT
== END 2019-06-02 13:01 | disposition home or self-care (01) | DRG 468 ==
LOC: D.MS 05-30 05:55 → D.SDCHOLD 05-30 05:55 → D.MS 05-30 12:25 → D.SDCHOLD 05-30 15:24 → D.MS 05-30 15:24
PROVIDERS: ADMIT Orthopaedic Surgery; ATTEND Orthopaedic Surgery
PROC: 0SRC0J9 Replacement of Right Knee Joint with Synthetic Substitute, Cemented, Open Approach (ICD-10-PCS; 2019-05-30)
PROC: 0SPC0JZ Removal of Synthetic Substitute from Right Knee Joint, Open Approach (ICD-10-PCS; principal; 2019-05-30 08:15)
DX: T84.84XA Pain due to internal orthopedic prosthetic devices, implants and grafts, initial encounter (principal); I10 Essential (primary) hypertension; E11.9 Type 2 diabetes mellitus without complications